=== PATIENT | male | born 1965 | race Hispanic/Latino ===

== ENCOUNTER 2019-03-18 08:50 | Emergency (ER) | payer SELFPAY ==
--- NOTE | 2019-03-18 09:20 | RAD ---
EXAM: Two views chest PROVIDED CLINICAL HISTORY: Cough COMPARISON: 06/16/2009 FINDINGS: Cardiac and mediastinal silhouette appears within normal limits. There is a nodular density overlying the right lateral mid to lower lung zone on the frontal view, not definitely localized on the lateral. This appears similar to the prior examination. Lungs appear otherwise clear. No pleural flui d or pneumothorax apparent. IMPRESSION: No evidence for an acute cardiopulmonary process.
== END 2019-03-18 10:25 | disposition home or self-care (01) ==
LOC: ERS 08:50
DX: J10.1 Influenza due to other identified influenza virus with other respiratory manifestations (principal)
CPT/HCPCS: 71046; 87804